=== PATIENT | female | born 2000 | race Caucasian/White ===

== ENCOUNTER 2018-08-31 11:53 | Emergency (ER) | payer OTHER ==
[~2018-08-31] VITALS: Ht 160 cm; Wt 77.1 kg
[2018-08-31 13:15] LABS: BASO % 0 % (0-3); EOS % 1 % (0-3); HEMATOCRIT 35.4 % (36.0-47.0); HEMOGLOBIN 11.4 g/dL (12.0-15.5); LYMPH # 1.9 x10^3/uL (1.0-4.8); LYMPH % 25 % (24-48); MEAN CORPUSCULAR HEMOGLOBIN 27 pg (25-35); MEAN CORPUSCULAR HGB CONC 32 g/dL (31-37); MEAN CORPUSCULAR VOLUME 82 fL (79-100); MONO # 0.7 x10^3/uL (0.0-1.1); MONO % 8 % (0-9); NEUT # 5.3 x10^3uL (1.8-7.7); NEUT % 66 % (31-73); PLATELET COUNT 266 x10^3/uL (140-400); RED BLOOD COUNT 4.29 x10^6/uL (3.50-5.40); RED CELL DISTRIBUTION WIDTH 18.2 % (11.5-14.5); WHITE BLOOD COUNT 7.9 x10^3/uL (4.0-11.0)
[2018-08-31 13:17] LABS: BILIRUBIN,URINE NEGATIVE (NEG); CLARITY,URINE CLEAR; COLOR,URINE YELLOW; NITRITE,URINE NEGATIVE (NEG); PH,URINE 6.5; PROTEIN,URINE NEGATIVE (NEG-TRACE); UROBILINOGEN,URINE 0.2 mg/dL (0.2 mg/dL)
[2018-08-31 13:22] LABS: CALCIUM 9.5 mg/dL (8.5-10.1); CREATININE 0.8 mg/dL (0.6-1.0); GFR 91.4; POTASSIUM 3.7 mmol/L (3.5-5.1)
[2018-08-31 13:30] VITALS: BP 122/72
[2018-08-31 13:32] LABS: BACTERIA,URINE FEW /HPF (0-FEW); RBC,URINE 20-40 /HPF (0-2); SQUAMOUS EPITHELIAL CELL,UR FEW /LPF
--- NOTE | 2018-08-31 15:20 | PHYS DOC ---
Past Medical History Past Medical History: Depression (HUSAM BOUCHER APRN) Past Surgical History: No Surgical History (HUSAM BOUCHER APRN) Alcohol Use: None Drug Use: None (HUSAM BOUCHER APRN) Adult General Chief Complaint Chief Complaint: VAGINAL BLEEDING HPI HPI 18-year-old female presents to ER via POV for reports of vaginal bleeding. Patient states that today she started having vaginal spotting and today the bleeding increased. She reports she has had lower abdominal cramping intermittently this morning. She reports she was seen by her POWER AND RECOVERY SUPERVISOR yesterday Dr Silvia Montalvo and had pelvic exam done. She reports she had ultrasound 2 weeks ago which confirmed her and heartbeat was visualized and given due date of 04/08/19. She reports her LMP was 06/28/18. She reports with this she is 2 para 0 as she had previous miscarriage at 7 weeks gestation. She denies fever, urinary sxs, or back pain. She denies any recent sexual intercourse. She denies any falls or injury. She reports she is not involved with the father denies feeling unsafe or she currently lives. She denies any anxiety with this as it was unplanned. She denies SI. (HUSAM BOUCHER APRN) Review of Systems Review of Systems Constitutional: Denies fever or chills [] Respiratory: Denies cough or shortness of breath [] Cardiovascular: No additional information not addressed in HPI [] GI: Denies nausea, vomiting, bloody stools or diarrhea. Reports lower abd cramping : Denies dysuria or hematuria. Reports vaginal bleeding and passed some clots- denies tissue Musculoskeletal: Denies back pain or joint pain [] Integument: Denies rash or skin lesions [] Neurologic: Denies headache, focal weakness or sensory changes. Reports dizziness All other systems were reviewed and found to be within normal limits, except as documented in this note. (HUSAM BOUCHER APRN) Allergies Allergies Allergies Coded Allergies Type Severity Reaction Last Updated Verified No Known Drug Allergies 08/31/18 No (JEFFY BENITO MD) Physical Exam Physical Exam Constitutional: Well developed, well nourished, no acute distress, non-toxic appearance. [] HENT: Normocephalic, atraumatic, oropharynx moist, nose normal. [] Eyes: Pupils equal, conjunctiva normal, no discharge. [] Neck: Normal range of motion, no tenderness, supple, no stridor. [] Cardiovascular: Heart rate regular rhythm, no murmur [] Lungs & Thorax: Bilateral breath sounds clear to auscultation- resp. equal/nonlabored Abdomen: Bowel sounds normal, soft, tender on palp. of lower abd/suprapubic area- no distention/rigidity Skin: Warm, dry, no erythema, no rash. [] Back: No tenderness, no CVA tenderness. [] Extremities: No tenderness, no cyanosis, no clubbing, ROM intact, no edema. [] Neurologic: Alert and oriented X 3, normal motor function, normal sensory function, no focal deficits noted. [] Psychologic: Affect normal, judgement normal, mood normal- no anxiety during exam. Denies SI Pelvic Exam: 1505 External Genitalia: Normal Skin-no lesions/rash Speculum: Normal vaginal mucosa, darkened red blood in vaginal vault- cervical os closed. No clots/tissue in vault (REFFITT,HUSAM Fatima APRN) Current Patient Data Vital Signs Vital Signs Date Time Temp Pulse Resp B/P (MAP) Pulse Ox O2 Delivery O2 Flow Rate FiO2 08/31/18 15:00 82 99 Room Air 08/31/18 13:30 122/72 (89) 08/31/18 12:17 99.1 16 99.1 (JEFFY BENITO MD) Lab Values Laboratory Tests Test 08/31/18 12:07 08/31/18 12:12 White Blood Count 7.9 x10^3/uL (4.0-11.0) Red Blood Count 4.29 x10^6/uL (3.50-5.40) Hemoglobin 11.4 g/dL (12.0-15.5) L Hematocrit 35.4 % (36.0-47.0) L Mean Corpuscular Volume 82 fL (79-100) Mean Corpuscular Hemoglobin 27 pg (25-35) Mean Corpuscular Hemoglobin Concent 32 g/dL (31-37) Red Cell Distribution Width 18.2 % (11.5-14.5) H Platelet Count 266 x10^3/uL (140-400) Neutrophils (%) (Auto) 66 % (31-73) Lymphocytes (%) (Auto) 25 % (24-48) Monocytes (%) (Auto) 8 % (0-9) Eosinophils (%) (Auto) 1 % (0-3) Basophils (%) (Auto) 0 % (0-3) Neutrophils # (Auto) 5.3 x10^3uL (1.8-7.7) Lymphocytes # (Auto) 1.9 x10^3/uL (1.0-4.8) Monocytes # (Auto) 0.7 x10^3/uL (0.0-1.1) Eosinophils # (Auto) 0.0 x10^3/uL (0.0-0.7) Basophils # (Auto) 0.0 x10^3/uL (0.0-0.2) Urine Collection Type Unknown Urine Color Yellow Urine Clarity Clear Urine pH 6.5 Urine Specific [place] <=1.005 Urine Protein Negative mg/dL (NEG-TRACE) Urine Glucose (UA) Negative mg/dL (NEG) Urine Ketones (Stick) Negative mg/dL (NEG) Urine Blood Large (NEG) Urine Nitrite Negative (NEG) Urine Bilirubin Negative (NEG) Urine Urobilinogen Dipstick 0.2 mg/dL (0.2 mg/dL) Urine Leukocyte Esterase Trace (NEG) Urine RBC 20-40 /HPF (0-2) Urine WBC 1-4 /HPF (0-4) Urine Squamous Epithelial Cells Few /LPF Urine Bacteria Few /HPF (0-FEW) Maternal Serum HCG Beta Subunit 96685 mIU/mL (0-5) H Sodium Level 139 mmol/L (136-145) Potassium Level 3.7 mmol/L (3.5-5.1) Chloride Level 104 mmol/L (98-107) Carbon Dioxide Level 25 mmol/L (21-32) Anion Gap 10 (6-14) Blood Urea Nitrogen 10 mg/dL (7-20) Creatinine 0.8 mg/dL (0.6-1.0) Estimated GFR (Cockcroft-Gault) 91.4 Glucose Level 96 mg/dL (70-99) Calcium Level 9.5 mg/dL (8.5-10.1) POC Urine HCG, Qualitative Hcg positive (Negative) Laboratory Tests 08/31/18 12:07 Laboratory Tests 08/31/18 12:07 (JEFFY BENITO MD) EKG EKG [] (HUSAM BOUCHER APRN) Radiology/Procedures Radiology/Procedures PROCEDURE: OB <14 WKS W/TV Examination: OB <14 WKS W/TV History: vaginal bleeding in preg Comparison/Correlation: 06/20/2015 CT abdomen pelvis without contrast Findings: Transabdominal and transvaginal pelvic ultrasound exam was performed. Uterus measures 8.4 cm x 4.2 cm x 5.8 cm. Partial septate uterus noted. pole is present within the right fundal aspect. heart rate is not detected. No subchronic hemorrhage. Single living intrauterine gestation is present with crown-rump length of 1.19 cm corresponding to 7 weeks 3 days gestation. Mean gestational sac diameter of 1.44 cm is present. Ultrasound EDC is 04/16/2019. Debris is questioned within the gestational sac about the pole. Right adnexa measures 2.2 cm x 2 cm x 2 cm. Left adnexa is 2.7 cm x 1.7 cm x 2.4 cm. Right corpus luteum cyst measuring 1.8 cm x 1.4 cm x 1.6 cm noted. Normal ovarian flow bilaterally is noted on color Doppler imaging. No pelvic free fluid. Impression: Intrauterine gestational sac is present. pole has crown-rump length corresponding to 7 weeks 2 day gestation but no heart rate detected and this is of concern for nonviable gestation. Partial septate uterus. Electronically signed by: Marco A Avelar MD (08/31/2018 3:18 PM) [facility] DICTATED and SIGNED BY: MARCO A AVELAR MD DATE: 08/31/18 1518 (HUSAM BOUCHER APRN) Course & Med Decision Making Course & Med Decision Making Pertinent Labs and Imaging studies reviewed. (See chart for details) Patient was evaluated in the ER for complaints of vaginal bleeding and reported she was approximately 7 weeks . Patient states today her bleeding had increased with lower abdominal cramping. Labs were obtained patient had H&H of 11.4/85.4. UA had large blood with trace of leukocytes microbe with 1-4 wbc's micro with bacteria and squamous cells noted. [place] [address]. Pelvic exam done and cervical os was visualized was closed. No clots or tissue in vaginal vault. Pt had darker blood in the vaginal vault. Ultrasound was obtained with report "Intrauterine gestational sac is present. pole has crown-rump length corresponding to 7 weeks 2 day gestation but no heart rate detected and this is of concern for nonviable gestation". This was discussed with pt as she had reported on US 2 wks ago heart beat was visualized. Discussed threatened miscarriage and need for repeat of hCG quantitative level. Pt reports she has appt tomorrow with her POWER AND RECOVERY SUPERVISOR. She is in no visible distress during discussion. She has had no anxiety. She reports she has good support with her grandmother. Education provided on signs and symptoms to return to ER for and discharge instructions were discussed. Patient was not [place] candidate blood type was A+. (HUSAM BOUCHER APRN) Course & Med Decision Making I was available for consultation regarding this patient's care. I did not see or evaluate the patient unless otherwise specified. (JEFFY BENITO MD) Dragon Disclaimer Dragon Disclaimer This electronic medical record was generated, in whole or in part, using a voice recognition dictation system. (HUSAM BOUCHER APRN) Departure Departure Impression: Primary Impression: Threatened Disposition: HOME, SELF-CARE Condition: STABLE Referrals: NO PCP (PCP) Patient Instructions: Threatened Miscarriage Additional Instructions: Keep scheduled appointment with your POWER AND RECOVERY SUPERVISOR doctor tomorrow. Avoid anything inserted into the vagina. Tylenol as needed for pain as directed on container. Drink plenty of fluids. Your HCG quantitative level was [address] and you are A+ blood type. HUSAM BOUCHER APRN Aug 31, 2018 15:20 JEFFY BENITO MD Aug 31, 2018 18:08
== END 2018-08-31 15:55 | disposition home or self-care (01) ==
LOC: ER 11:53
DX: O20.0 Threatened abortion (principal); Z3A.01 Less than 8 weeks gestation of pregnancy
CPT/HCPCS: 36415; 76801; 76817; 80048; 81001; 81025; 84702; 85025; 86900; 86901; 87086; 99285-25